=== PATIENT | female | born 1940 | race Caucasian/White ===

== ENCOUNTER 2016-06-06 07:42 | Inpatient (IN) | payer OTHER ==
--- NOTE | ~2016-06-06 | CO ---
Unit #: [id number] #: [id number] Patient: KEVIN NGO [id number] [address] [place], [place] [address] [id number] I MR#: [id number] NAME: KEVIN NGO ROOM: 576 Age: 75 Sex: F Admission Date: 06/06/2016 : 1940 Attending Physician: Phill Bowens M.D. Primary Care Physician: Aurora Horton A.P.R.N. Consultation Date: 06/06/2016 CONSULTATION REPORT REASON FOR CONSULT Renal insufficiency and hyperkalemia. Thank you very much for having me see this patient in consultation. HISTORY OF PRESENT ILLNESS Ms. Kevin Ngo is a 75-year-old, female who presented this morning to undergo heart catheterization. She has a history of severe aortic stenosis, history of heart disease, status post stents in the past. She has had some intermittent chest pain and increased shortness of breath and the cath is for possible valvular repair who was noted to have an increased BUN and creatinine of 50 and 1.8 with potassium of 5.7. Because of this, I was asked to see the patient. In reviewing the records, patient was noted in September of 2015 to have creatinine around 0.8. Actually, in March, it was up to 2.1. She said, at that time, she was not told her creatinine was elevated, but she does remember that they lowered her Lasix. She states she is not short of breath right now and not having chest pain, but reports with any type of exertion she has the same. She denies any nonsteroidal use. She denies, again, any kidney problems that she is aware of. She denies any frequent UTIs and nephrolithiasis. PAST MEDICAL HISTORY History of atherosclerotic coronary artery disease, status post angioplasty and stents; history of congestive heart failure with EF somewhere around 20% to 30% on different studies; history of severe aortic stenosis; history of atrial fibrillation, status post, it sounds like, cardioversion sometime in the last couple of months; history of hypertension; history of hyperlipidemia; history of diabetes mellitus, diet controlled; history of gastroesophageal reflux disease; history of hypothyroidism; history of gout; and history of pulmonary hypertension. ALLERGIES Include HCTZ and triamterene. SOCIAL HISTORY No alcohol. No smoking. She is a . MEDICATIONS Her medicines at home include KCl 10 mEq a day; Lasix 40 mg b.i.d.; lisinopril 5 mg a day; Aldactone 12.5 mg a day; and Coumadin. She is also on Ultram and Coreg and all those medicines have been on hold. She is currently still on Ultram here; Coreg; and she was started on Mucomyst, allopurinol, aspirin, Plaquenil, Protonix, Lipitor, Synthroid, as well as Unit #: [id number] #: [id number] Patient: NGO,[facility] IV fluids. REVIEW OF SYSTEMS As mentioned in the HPI. She denies any visual problems, sinus problems, cough, hemoptysis, sore throat, difficulty swallowing, neck pain, or neck stiffness. She denies any sort of abdominal pain, nausea, vomiting, or diarrhea. She denies any urinary symptoms of starting, stopping, or burning. She denies any significant lower extremity swelling lately. She denies any recent seizures, strokes, or skin rashes. FAMILY HISTORY Negative for any kidney disease. PHYSICAL EXAMINATION GENERAL: She is alert and oriented. VITAL SIGNS: Temperature 97.6, pulse 63, and blood pressure 160/63. HEENT: Normocephalic and atraumatic. Pupils are equal, round, and reactive to light. Extraocular muscles are intact. Hearing appears to be normal. Mouth clear. No erythema. No exudate. NECK: Supple. No adenopathy. CARDIAC: She is without a rub. She has a 2-3/6 systolic ejection murmur. LUNGS: Clear bilaterally. No wheezes, rhonchi, or rales. ABDOMEN: Bowel sounds positive. Nontender and soft. No masses felt. No hepato or organomegaly noted. EXTREMITIES: She has no significant lower extremity swelling. SKIN: No acute rashes. NEURO: Appears intact to motor and sensory grossly. : Deferred. DIAGNOSTIC STUDIES LABORATORY: Data showing a sodium of 137, potassium 5.7, chloride is 100, bicarb is 26, BUN and creatinine 50 and 1.8, glucose 201, and calcium is 10.6. Hemoglobin is 11.7, white count 6400, and platelets 116,000. INR is 1.4. In March of 2015, she had a creatinine of 2.1, potassium of 5.1, and platelets 112,000. In September 2015, her creatinine, again, was 0.8. ASSESSMENT AND PLAN 1. Hyperkalemia. This is a lady who has increased potassium upon presentation. Most likely, it is a combination of lisinopril, spironolactone, potassium pills, as well as a renal insufficiency all contributing to her increased potassium. She also has an increased glucose of 201, which is also causing cellular shifts. Agree with holding her lisinopril, spironolactone and potassium pill. She was given one dose of Kayexalate and we will recheck a lab later this afternoon. 2. Acute renal insufficiency. Patient with normal creatinine in September of 2015. It was up in March a little bit better, but still elevated here. Certainly, with her increased calcium as well, it suggests she might be volume depleted. Certainly, with her severe aortic stenosis, volume is a real issue secondary to possible decreased perfusion from the aortic stenosis. Again, I agree with holding her Lasix, lisinopril, spironolactone. She is on little IV fluids with bicarb. Will adjust that to make it non-hypertonic. Will check a SPEP due to the fact that her calcium is high. Check a urine to see if she has any type of active urinary sediment as well as check a renal ultrasound. Depending on what all that shows, depending on what further workup and treatment. Certainly, if her renal functions improve tomorrow, then proceed with heart catheterization. Unit #: [id number] #: [id number] Patient: KEVIN NGO 3. Hypertension. Again, keep her off angiotensin receptor [place] and VANI inhibitor for now. Any other agents okay from a renal standpoint, although, again, hold diuretics for now. 4. Cardiac issues, as mentioned above. 5. Diabetes mellitus. Apparently is not on any treatment for it at this time. 6. Hypothyroidism. Dictated by.Vikram Loaiza M.D. NEHEMIAH/china TD: 06/07/2016 06:40 JOB #: [id number] CONSULTATION REPORT Page 1 of 1 X Thien Loaiza MD X CONSULTATION REPORT
--- NOTE | ~2016-06-06 | CO ---
Unit #: [id number] #: [id number] Patient: KEVIN BHAT [id number] [address] [place], [place] [address] [id number] I MR#: [id number] NAME: KEVIN BHAT ROOM: 576 Age: 75 Sex: F Admission Date: 06/06/2016 : 1940 Attending Physician: Phill Bowens M.D. Primary Care Physician: Aurora Horton A.P.R.N. CONSULTATION REPORT ADMITTING AND CONSULTING PHYSICIAN Dr. Phill Bowens. REASON FOR HOSPITALIZATION The patient is a 75-year-old white female with history of chronic systolic CHF with an ejection fraction of 20%, chronic AFib, severe aortic stenosis, moderate mitral regurgitation, left bundle branch block, thrombocytopenia, hypertension, hyperlipidemia, type 2 diabetes mellitus, rheumatoid arthritis, hypothyroidism, peripheral arterial disease, chronic kidney disease stage 3, admitted for preop catheterization for possible TAVR, which was canceled secondary to hyperkalemia and worsening renal function. She is being admitted. Her diuretics and potassium supplements are being held. She is on IV fluids. She has been seen by Renal. Repeat labs are pending. She was started on Mucomyst as well and a bilateral renal ultrasound was just down but is pending at the time of dictation. PAST MEDICAL HISTORY Coronary artery disease, peripheral arterial disease, hypertension, hypothyroidism, diet-controlled type 2 diabetes mellitus, rheumatoid arthritis, gout, hyperlipidemia, chronic AFib, chronic systolic CHF, severe aortic stenosis, moderate mitral regurgitation, pulmonary hypertension, thrombocytopenia. PAST SURGICAL HISTORY Achilles tendon repair, hysterectomy, right breast cyst removal, cardiac stent x2, right femoral stent for PAD. SOCIAL HISTORY Nonsmoker, nondrinker. No street drug use. FAMILY HISTORY Noncontributory. ALLERGIES Hydrochlorothiazide and triamterene. MEDICATIONS PRIOR TO ADMISSION 1. Albuterol 300 mg daily. 2. Synthroid 125 mcg daily. 3. Plaquenil 200 mg daily. 4. KCl 10 mEq daily. 5. Calcium plus D 600 mg b.i.d. 6. Aspirin 81 mg daily. 7. Prilosec 20 mg daily. Unit #: [id number] #: [id number] Patient: BHAT,KEVIN 8. Magnesium oxide 400 mg daily. 9. Coreg 6.5 mg daily, which I suspect is 6.25 mg. 10. Digoxin 0.125 mcg daily. 11. Furosemide 40 mg b.i.d. 12. Lisinopril 5 mg daily. 13. Warfarin which she has been off of three days. 14. Aldactone 25 mg daily. PHYSICAL EXAMINATION GENERAL APPEARANCE: She is awake, alert, oriented x3, in no acute distress. (1) during the history and physical examination. VITAL SIGNS: She is afebrile. Pulse 76. Respirations 18. Blood pressure 160/63. Room air O2 sat 97%. HEENT: Unremarkable. NECK: Supple without JVD, bruits, adenopathy or thyromegaly. CHEST: Clear to auscultation. HEART: Irregularly irregular with a 4/6 systolic murmur best appreciated at the right upper sternal border. ABDOMEN: Soft, nondistended and nontender with positive bowel sounds and no hepatosplenomegaly. EXTREMITIES: No clubbing, cyanosis or edema. GENITOURINARY: Deferred. RECTAL: Deferred. NEUROLOGIC: Exam is grossly intact. DIAGNOSTIC STUDIES LABORATORY: White count 6.4, hemoglobin 11.7, platelets 116,000. INR 1.4, PTT 28.4. Potassium 5.7, CO2 26, random blood sugar 201, BUN 50, creatinine 1.8, GFR 26.9, calcium 10.6. IMPRESSION 1. Hyperkalemia. 2. Acute on chronic kidney disease. 3. Chronic AFib. 4. Severe aortic stenosis. 5. Moderate mitral regurgitation. 6. Chronic systolic CHF with an ejection fraction of 20%. 7. Peripheral arterial disease. 8. Coronary artery disease. 9. Hyperlipidemia. 10. Type 2 diabetes mellitus. 11. Rheumatoid arthritis. 12. Gout. 13. GE reflux disease. 14. Hypothyroidism. 15. Pulmonary hypertension. 16. Thrombocytopenia. 17. Anemia. PLAN As mentioned above, her Lasix, lisinopril, potassium, Aldactone have been held. She has been started on IV fluids. She has been seen by Renal. Repeat BMP is ordered for 4 p.m. and in the morning along with another CBC as well as a bilateral renal ultrasound. Urinalysis, urine sodium and serum immunoelectrophoresis. We will also check a magnesium and Digoxin level, discontinue her Prilosec and use Pepcid instead. She has already been started on Mucomyst as well. Hopefully, her hyperkalemia and renal function will improve and she can undergo cardiac cath in the morning. Unit #: [id number] #: [id number] Patient: PERLITA,KEVIN Further evaluation pending results of the above. Dictated by... Vitaly Mejía/luli TD: 06/07/2016 06:00 JOB #: [id number] CONSULTATION REPORT Page 1 of 1 X Stevan Aiken MD X CONSULTATION REPORT
--- NOTE | ~2016-06-06 | DS ---
Unit #: [id number] #: [id number] Patient: KEVIN BHAT [id number] [address] [place], [place] [address] [id number] I MR#: [id number] NAME: KEVIN BHAT ROOM: 576 Age: 75 Sex: F Admission Date: 06/06/2016 : 1940 Discharge Date: 06/07/2016 Attending Physician: Phill Bowens M.D. Referring Physician: Phill Bowens M.D. Primary Care Physician: Aurora Horton A.P.R.N. DISCHARGE SUMMARY DISCHARGE DIAGNOSES 1. Acute kidney injury, probably secondary to severe aortic stenosis. 2. Hyperkalemia, resolved. 3. Cardiac catheterization 06/07/[address] Bowens that revealed an ejection fraction of 20% with severe mitral regurgitation. Coronaries with no significant stenosis. Stents in the left circumflex and right coronary artery widely patent. Please see details of the cardiac catheterization report. 4. Hypertension. 5. Hyperlipidemia. 6. History of atrial fibrillation, converted to normal sinus rhythm with IVC shock 08/2015. 7. Diabetes mellitus type 2. 8. History of PCI and stent to the circumflex artery and mid right coronary artery 10/2014. 9. Severe aortic stenosis with moderate mitral regurgitation and moderate to severe tricuspid regurgitation. DISCHARGE MEDICATIONS 1. Magnesium oxide 400 mg daily. 2. Warfarin 1 mg Saturday through Saturday. 3. Plaquenil 200 mg daily. 4. Carvedilol 12.5 mg b.i.d. 5. Digoxin 0.125 mg q.48 h. 6. Furosemide 40 mg b.i.d. 7. Hydralazine 50 mg b.i.d. 8. Allopurinol 300 mg daily. 9. Aspirin 81 mg daily. 10. Calcium plus D 600 mg b.i.d. 11. Levothyroxine 0.125 mg daily. HOSPITAL COURSE This is a 75-year-old female who presented for an elective cardiac catheterization because of exertional angina. She has a severe aortic stenosis where the aortic valve area was 0.6 cm2 with maximum gradient of 40 and mean gradient of 23 mmHg per echocardiogram 08/2015. At that time she had a low ejection fraction of 20%. Because of her known coronary artery disease, in preparation for aortic valve replacement by TAVR, cardiac catheterization was recommended, for which the patient presented. On the day of cardiac catheterization the patient was found to have abnormal laboratory values with elevated creatinine of 1.8. She was also hyperkalemic with a potassium level of 5.7. Cardiac catheterization was canceled. The patient was admitted to the floor. Dr. Aiken was asked to Unit #: [id number] #: [id number] Patient: BHAT,[facility] see the patient for medical management. Dr. Loaiza saw the patient because of acute kidney injury. Dr. Loaiza felt the patient's acute kidney injury could be secondary to severe aortic stenosis causing decreased diffusion. She was also on furosemide, lisinopril and spironolactone. She was treated with bicarbonate IV fluid. Urine studies were obtained. Urinalysis was negative. Her creatinine level improved to 1.4. She underwent cardiac catheterization, which found her to have previously placed stents to the right coronary artery and circumflex artery to be widely patent. There was no significant stenosis. She was noted to have severe mitral regurgitation and ejection fraction of 20%. Total contrast used was 73 mL. Change in medications was spironolactone, lisinopril and Lipitor was discontinued. For blood pressure control the patient was started on hydralazine. Furosemide was restarted. Today the patient is doing well post procedure. Creatinine today is 1.3. Potassium level improved to 4.2. Heart rate and blood pressure are stable. She is stable for discharge today. PHYSICAL EXAMINATION VITALS: Blood pressure 144/33, heart rate 61, temperature 97.9. CHEST: Clear to auscultation. HEART: S1 and S2. Regular rate and rhythm. ABDOMEN: Soft and nontender with bowel sounds present. EXTREMITIES: Without leg edema. Pedal pulses are palpable. SKIN: Right groin with very minimal bruising. No hematoma. DIAGNOSTIC DATA LABORATORY: Glucose 133, BUN 34, creatinine 1.3, sodium 138, potassium 4.2, magnesium 1.8, white blood cell count 5.3, hemoglobin 10.8, hematocrit 32.9, platelet count 102. CARDIOVASCULAR: Rhythm strip shows normal sinus rhythm. CONSULTANTS Dr. Farrukh Loaiza for renal management. Dr. Aiken for medical management. DISCHARGE INSTRUCTIONS 1. The patient will be discharged home today. 2. Follow up with primary care physician in one to two weeks. 3. Follow up with Dr. Bowens on 08/13/2016 at 2:30 p.m. 4. The patient will need a BMP in one week to follow her creatinine and GFR. DISCHARGE INSTRUCTIONS 1. Lisinopril, spironolactone, potassium and Lipitor have been discontinued because of acute kidney injury. 2. The patient has been instructed not to drive or take tub baths for the next 48 hours. 3. If hematoma were to develop, she is to hold firm pressure and come to the nearest hospital. Instructions have been given to the patient and daughter and they have verbalized understanding. Dictated by... Rima RosenbergPKateRKateNKate for Phill Bowens M.D. Unit #: [id number] #: [id number] Patient: KEVIN BHAT AEP/gz TD: 06/08/2016 08:39 JOB #: [id number] CC: [facility] Sara Loaiza M.D. DISCHARGE SUMMARY Page 1 of 1 X Irwin Meade APRN DISCHARGE SUMMARY
--- NOTE | ~2016-06-06 | EKG ---
PATIENT: BHAT, [facility] UNIT #: [id number] Ventricular Rate: 56 BPM Atrial Rate: 441 BPM QRS Duration: 162 ms Q-T Interval: 484 ms QTC Calculation(Bezet): 467 ms Calculated R Manter: -4 degrees Calculated T Manter: 149 degrees Diagnosis Line: Normal sinus rhythm Diagnosis Line: Left bundle branch block Diagnosis Line: Abnormal ECG Diagnosis Line: When compared with ECG of 22-MAR-2016 09:29, Diagnosis Line: No significant change was found Diagnosis Line: Confirmed by DENZEL LAWRENCE MD ([id number]) on 06/06/2016 Diagnosis Line: 10:42:40 PM INTERPRETING MD: MELINDA KRISHNAN
--- NOTE | ~2016-06-06 | US77 ---
[facility] A Service of [facility] & [facility] RADIOLOGY TEXT RESULTS PATIENT: KEVIN BHAT LOCATION: [facility] 576-01 : 39 UNIT #: [id number] AGE: [address]: Phill Bowens MD SEX: F ORDER DR: [id number] [facility] [address] [place], [place] [address] [id number] I MR#: [id number] Acc #: [id number] NAME: KEVIN BHAT : 1940 SEX: F STUDY DATE/TIME: 06/06/2016 13:48 UNIT: [facility] ROOM: [facility] STUDY DESCRIPTION: US Kidney Bilateral Complete Attending Physician: Phill Bowens M.D. Referring Physician: Phill Bowens M.D. Ordering Physician: Phill Bowens M.D. Primary Care Physician: Aurora Horton A.P.R.N. MEDICAL IMAGING REPORT This report is preliminary unless electronic signature is present EXAM Renal ultrasound 06/06/2016 HISTORY Acute renal insufficiency, abnormal renal function tests on 06/06/2016 elevated BUN of 50, elevated creatinine 1.8. Abnormally low GFR of 26.9. FINDINGS The right kidney measured 9.4 cm while the left kidney measured 9.8 cm in longitudinal dimensions. There is no evidence of hydronephrosis or nephrolithiasis. No cystic or solid mass lesions were seen on either kidney. There is normal renal cortical echogenicity. Images of the bladder are normal. IMPRESSION 1. Negative renal ultrasound. 2. Images of the bladder are normal. Dictated by... Suresh Nicole M.D. THIS IS AN ELECTRONICALLY VERIFIED REPORT Suresh Nicole M.D. at 06/07/2016 8:07 AM ALEJANDRO/sacha TD: 06/06/2016 16:10 JOB #: [id number] MEDICAL IMAGING REPORT Page 1 of 1 COPY
[~2016-06-06 07:42] MED LIST: ALDACTONE25 MG PO; ALLOPURINOL300 MG PO; AMIODARONE PO; ASPIRIN PO; ASPIRIN81 M2 PO; ATENOLOL PO; ATENOLOL50 MG PO; CALTRATE 600+D PO; CALTRATE-600/VI1 TA2 PO; CARTIA XT PO; CARVEDILOL3.125 MG PO; CLOPIDOGREL75 MG PO; COREG12.5 MG PO; COUMADIN PO; COUMADIN5 MG PO; COZAAR PO; DIGOX0.125 MG PO; DILTIAZEM 24HR120 MG PO; FISH OIL 1,0001 CAP PO; FLAX SEED OIL1000 MG PO; FUROSEMIDE40 MG PO; FUROSEMIDE80 MG PO; IBUPROFEN PO; ISOSORBIDE DINI30 MG PO; KLOR-CON PO; LAMISIL PO; LISINOPRIL5 MG PO; LOZOL PO; MAG-OX 400400 M1 PO; NIFEDIPINE XR PO; NITROSTAT0.4 MG SL; PLAQUENIL200 MG PO; PLAVIX PO; PREMARIN PO; PRILOSEC PO; PRILOSEC20 MG PO; SYNTHROID PO; SYNTHROID125 PO; TOPROL XL 50 MG50 MG PO; WARFARIN SODIUM1 M1 PO; WARFARIN SODIUM2 MG PO; WELCHOL625 MG PO
[2016-06-06 08:28] LABS: HEMATOCRIT 35.9 % (35.0-45.0); HEMOGLOBIN 11.7 gm/dL (12.0-16.0); MEAN CELL VOLUME 98.5 FL (83-96); MEAN CORPUSCULAR HEMOGLOBIN 32.2 PG (28-34); MEAN CORPUSCULAR HGB CONC 32.6 g/dL (30-36); MEAN PLATELET VOLUME 9.1 FL (6.5-11.5); RED BLOOD COUNT 3.64 X10e (3.90-5.30); RED CELL DISTRIBUTION WIDTH 15.4 % (11.0-15.5); WHITE BLOOD COUNT 6.4 X10e3 (4.0-10.5)
[2016-06-06 08:47] LABS: INR 1.4; PARTIAL THROMBOPLASTIN TIME 28.4 SECONDS (23.5-31.3)
[2016-06-06 08:50] LABS: PROTHROMBIN TIME (PATIENT) 15.4 SECONDS (9.6-11.5)
[2016-06-06 09:13] LABS: BUN/CREATININE RATIO 27.77; CALCIUM SERUM 10.6 mg/dL (8.4-10.2); CREATININE SERUM 1.8 mg/dL (0.6-1.4); GLOM FILT RATE Estimated 26.9 mL/min (>60)
[2016-06-06 09:17] LABS: POTASSIUM 5.7 mmol/L (3.5-5.1)
[2016-06-06 16:33] LABS: URINE APPEARANCE CLEAR; URINE BILIRUBIN NEG (NEG); URINE BLOOD NEG (NEG); URINE COLOR YELLOW; URINE GLUCOSE NEG (NEG); URINE KETONE NEG (NEG); URINE LEUKOCYTE ESTERASE NEG (NEG); URINE NITRATE NEG (NEG); URINE PH 7.5 (5-8); URINE PROTEIN NEG (NEG); URINE SPECIFIC GRAVITY 1.014 (1.003-1.035); URINE UROBILINOGEN 0.2 MG/DL (NEG)
[2016-06-06 17:06] LABS: CALCIUM SERUM 9.7 mg/dL (8.4-10.2); CREATININE SERUM 1.4 mg/dL (0.6-1.4); GLOM FILT RATE Estimated 36.4 mL/min (>60); POTASSIUM 4.6 mmol/L (3.5-5.1)
[2016-06-06 17:30] LABS: DIGOXIN (LANOXIN) 0.5 ng/ml (1.0-2.0); MAGNESIUM 1.8 mg/dL (1.6-3.0)
[2016-06-07 05:22] LABS: BASOPHIL% 0.5 % (0-2.5); EOSINOPHIL# 0.2 X10e3 (0-0.7); HEMATOCRIT 32.9 % (35.0-45.0); HEMOGLOBIN 10.8 gm/dL (12.0-16.0); LYMPHOCYTE# 0.9 X10e3 (1.0-3.5); LYMPHOCYTE% 16.9 % (17.0-45.0); MEAN CELL VOLUME 98.1 FL (83-96); MEAN CORPUSCULAR HEMOGLOBIN 32.2 PG (28-34); MEAN CORPUSCULAR HGB CONC 32.8 g/dL (30-36); MEAN PLATELET VOLUME 9.3 FL (6.5-11.5); MONOCYTE# 0.6 X10e3 (0-1.0); MONOCYTE% 11.8 % (3.0-12.0); NEUTROPHIL# 3.6 X10e3 (1.5-7.1); NEUTROPHIL% 67.8 % (40-75); PLATELET COUNT 102 X10e3 (140-420); RED BLOOD COUNT 3.35 X10e (3.90-5.30); RED CELL DISTRIBUTION WIDTH 15.2 % (11.0-15.5); WHITE BLOOD COUNT 5.2 X10e3 (4.0-10.5)
[2016-06-07 05:37] LABS: DIFF IND NO
[2016-06-07 06:00] LABS: BUN/CREATININE RATIO 26.15; CALCIUM SERUM 9.2 mg/dL (8.4-10.2); CREATININE SERUM 1.3 mg/dL (0.6-1.4); GLOM FILT RATE Estimated 39.8 mL/min (>60); POTASSIUM 4.2 mmol/L (3.5-5.1)
[2016-06-07] MEDS ORDERED: HYDRALAZINE HCL50 MG PO (17:32)
== END 2016-06-07 17:56 | disposition home or self-care (01) | DRG 287 ==
LOC: CSSDAY 07:42 → CPACUOF 09:30 → C5C 12:46
PROVIDERS: Internal Medicine; Internal Medicine Cardiovascular Disease
PROC: 4A023N7 Measurement of Cardiac Sampling and Pressure, Left Heart, Percutaneous Approach (ICD-10-PCS; principal; 2016-06-07)
PROC: B211YZZ Fluoroscopy of Multiple Coronary Arteries using Other Contrast (ICD-10-PCS; 2016-06-07)
PROC: B215YZZ Fluoroscopy of Left Heart using Other Contrast (ICD-10-PCS; 2016-06-07)
DX: I08.3 Combined rheumatic disorders of mitral, aortic and tricuspid valves (principal); N17.9 Acute kidney failure, unspecified; E11.22 Type 2 diabetes mellitus with diabetic chronic kidney disease; I27.2 Other secondary pulmonary hypertension; I13.0 Hypertensive heart and chronic kidney disease with heart failure and stage 1 through stage 4 chronic kidney disease, or unspecified chronic kidney disease; I50.22 Chronic systolic (congestive) heart failure; D69.6 Thrombocytopenia, unspecified; I48.91 Unspecified atrial fibrillation; I25.118 Atherosclerotic heart disease of native coronary artery with other forms of angina pectoris; Z95.5 Presence of coronary angioplasty implant and graft; Z79.01 Long term (current) use of anticoagulants; M19.90 Unspecified osteoarthritis, unspecified site; I65.23 Occlusion and stenosis of bilateral carotid arteries; K21.9 Gastro-esophageal reflux disease without esophagitis; M10.9 Gout, unspecified; E03.9 Hypothyroidism, unspecified; I73.9 Peripheral vascular disease, unspecified; M06.9 Rheumatoid arthritis, unspecified; Z79.82 Long term (current) use of aspirin; E87.5 Hyperkalemia; E78.5 Hyperlipidemia, unspecified; Z90.710 Acquired absence of both cervix and uterus; N18.9 Chronic kidney disease, unspecified; D64.9 Anemia, unspecified
CPT/HCPCS: 36415; 76770; 80048; 80162; 81003; 82810; 82947; 83735; 84300; 85025; 85027; 85610; 85730; 86334; 87086; 87088; 93005; C1769; C1887; C1894; J1644; J1815; J1940; J2250; J2405; J3010

== ENCOUNTER → 2016-10-31 | Outpatient (CLI) | payer OTHER ==
[~2016-10-31] MED LIST changes: +HYDRALAZINE HCL50 MG PO
--- NOTE | ~2016-10-31 | US6 ---
[facility] A Service of [facility] & [facility] RADIOLOGY TEXT RESULTS PATIENT: KEVIN BHAT LOCATION: [facility] : 39 UNIT #: [id number] AGE: [address]: Aurora Horton APRN SEX: F ORDER DR: [id number] [facility] [address] [place], [place] [address] [id number] O MR#: [id number] Acc #: [id number] NAME: KEVIN BHAT : 1940 SEX: F STUDY DATE/TIME: 10/31/2016 15:48 UNIT: [facility] ROOM: STUDY DESCRIPTION: US Abdominal Limited Attending Physician: Aurora Horton A.P.R.N. Referring Physician: Aurora Horton A.P.R.N. Ordering Physician: Aurora Horton A.P.R.N. Primary Care Physician: Aurora Horton A.P.R.N. MEDICAL IMAGING REPORT This report is preliminary unless electronic signature is present EXAM Ultrasound abdominal limited, 10/31/2016. HISTORY Ascites. Abdominal distension with shortness of air for 3 weeks. No history of liver disease. CHF. Evaluate for ascites. TECHNIQUE Real-time ultrasonography of the abdomen was performed. Study limited. Quadrant evaluation for ascites. COMPARISON 09/15/2015. FINDINGS No ascites present on prior examination. On the current study, there is a small volume of ascites adjacent to the liver. There is a smaller volume of ascites adjacent to the spleen. No left lower quadrant ascites is seen. There is a small volume of ascites in the right lower quadrant. The study not tailored for assessment of the liver. On at least one of the images of the liver, it would appear to have a slightly nodular contour without discrete focal abnormalities seen. This raises concern for possible underlying cirrhosis. Correlate clinically. Consider dedicated hepatic imaging with CT. Visualized portion of the right kidney and spleen are unremarkable. IMPRESSION 1. Small volume of ascites adjacent to the liver. There is a small volume of ascites in the right lower quadrant. Significantly smaller amount of fluid adjacent to the spleen. 2. Questionable cirrhotic morphology of liver. Please note this study was not tailored for assessment of the solid organs. Correlate clinically. Consider hepatic imaging with CT. [facility] A Service of [facility] RADIOLOGY TEXT RESULTS PATIENT: KEVIN BHAT LOCATION: [facility] : 39 UNIT #: [id number] AGE: [address]: Aurora Horton APRN SEX: F ORDER DR: Dictated by... Constantino Rebolledo M.D. THIS IS AN ELECTRONICALLY VERIFIED REPORT Constantino Rebolledo M.D. at 11/01/2016 5:13 PM RICARDO/clementina TD: 10/31/2016 18:31 JOB #: [id number] MEDICAL IMAGING REPORT Page 1 of 1 COPY
== END | disposition home or self-care (01) ==
LOC: CGUS 15:30 → CWCC 16:00
DX: R18.8 Other ascites (principal)
CPT/HCPCS: 76705